=== PATIENT | male | born 1960 | race Caucasian/White ===

== ENCOUNTER 2018-11-28 15:50 | Inpatient (IN) | payer BC, OTHER ==
[~2018-11-28] VITALS: Ht 172.7 cm; Wt 119.7 kg
--- NOTE | 2018-11-28 16:54 | NUR ---
DIRECT ADMIT ARRIVED TO ROOM IN STABLE CONDITION. ADMISSION ASSESSMENT COMPLETED AND CHARTED. PT A&O, X4. VERY FLAT AFFECT, SHORT, AND FRUSTRATED. C/O COUGH AND TROUBLE BREATHING OVER THE PAST MONTH. REPORTING STERNUM PAIN WITH COUGHING. IRREGULAR HEART RATE, HX ABLATION AND OH. CLEAR/COARSE LUNG SOUNDS, IRRITATING COUGH NOTED. NO EDEMA NOTED. ACTIVE BOWEL SOUNDS, LAST BM THIS MORNING. SKIN INTACT. PT BELONGINGS WALLET, CAR KEYS, PHONE, CLOTHES. ADMITING PHYSICIAN NOTIFIED OF PT ARRIVAL. WILL CONTINUE TO MONITOR.
[2018-11-28 17:30] VITALS: BP 140/80
[2018-11-28 17:54] LABS: ABSOLUTE NEUTROPHILS 4.7 thou/uL (1.4-8.2); BASOPHILS 0.8 % (0.0-2.0); EOSINOPHILS 3.5 % (0.0-3.0); HEMATOCRIT 43.7 % (42.0-52.0); HEMOGLOBIN 15.2 gm/dL (14.0-18.0); LYMPHOCYTES 33.2 % (24.0-44.0); MCHC 34.7 g/dL (28.0-37.0); MCV 89.3 fL (80.0-100.0); MONOCYTES 8.1 % (1.0-8.0); PLATELET COUNT 183 thou/uL (150-400); POLYS 54.4 % (36.0-66.0); RBC 4.89 mil/uL (4.50-6.00); RDW 13.9 % (10.5-14.5); WBC 8.7 thou/uL (4.0-11.0)
[2018-11-28 18:05] LABS: ALBUMIN 4.2 g/dL (3.4-5.0); CALCIUM 8.8 mg/dL (8.5-10.1); CREATININE 1.3 mg/dL (0.7-1.3); TOTAL BILIRUBIN 0.4 mg/dL (<0.1-1.0); TOTAL PROTEIN 7.5 g/dL (6.4-8.2)
--- NOTE | 2018-11-28 19:11 | NUR ---
END OF SHIFT. PT SETTLED IN ROOM. PAIN MEDS GIVEN ORDERED FOR IRRITATED COUGH. VISITORS AT BEDSIDE. PT RESTING IN BED.
[2018-11-28 19:40] VITALS: BP 126/85
--- NOTE | 2018-11-28 20:30 | NUR ---
FRIENDS BROUGHT MEDS FROM HOME. MEDS COUNTED WITH PATIENT AND SECURED IN SEALED SECURITY BAG. SENT TO PHARMACY.
--- NOTE | 2018-11-29 04:00 | NUR ---
Assumed care of pt at 1900. Pt alert and oriented x4. Non-productive cough. Breathing treatments administered by RT. Paxil 20mg restarted at hs. Pt iv accidentally came out during shift. WIRED MUSIC OPERATOR on duty notified and it is ok to leave iv out for remainder of shift. Can be restarted in am if needed. Will continue to assist with needs.
[2018-11-29 04:47] VITALS: BP 127/88
[2018-11-29 05:28] LABS: HEMATOCRIT 42.7 % (42.0-52.0); HEMOGLOBIN 14.5 gm/dL (14.0-18.0); MCH 30.6 pg (26.0-34.0); MCHC 34.1 g/dL (28.0-37.0); MCV 89.9 fL (80.0-100.0); RBC 4.75 mil/uL (4.50-6.00); RDW 14.2 % (10.5-14.5); WBC 7.7 thou/uL (4.0-11.0)
[2018-11-29 06:24] LABS: CREATININE 1.1 mg/dL (0.7-1.3); POTASSIUM 4.7 mmol/L (3.5-5.1)
[2018-11-29 07:23] VITALS: BP 140/81
[2018-11-29 16:06] VITALS: BP 141/87
--- NOTE | 2018-11-29 16:12 | NUR ---
INITIAL ASSESSMENT: Pt evaluated for d/c planning needs. Reviewed chart and spoke with nurse and pt. Pt is alert and oriented. Pt lives alone in duplex with his dogs. Pt was independent with ADL's and used no DME. Pt has not had home health in the past. 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 Pt plans on returning home on d/c from hospital. Will remain available to assist as needed.
--- NOTE | 2018-11-29 18:13 | NUR ---
RECEIVED PT FROM AROUND 1730. PT AWAKE, ALERT/ORIENTED X4 ENJOYING DINNER WITH FRIENDS AT BEDSIDE. DRY, NON-PRODUCTIVE COUGH NOTED. PT STATES HE IS NOT COUGHING ANYTHING UP. WILL CONTINUE WITH CURRENT CARE.
[2018-11-29 20:58] VITALS: BP 141/76
--- NOTE | 2018-11-30 03:02 | NUR ---
ASSESSMENT: PT REMAIN ALERT AND ORIENT TIMES FOUR. UP AD DEYSI WITH STEADY GAIT. PT WAS TRANSFERRED DOWN HERE TODAY FROM [facility]. PT STATE THAT HE ONLY SEEN HIS NURSE TWICE. PT IS NEEDY AND REQUIRES LOTS OF TIME EXPLAINING THINGS AND ANSWERING QUESTIONS. PT STATE THAT HE HAS BOUTS OF SWEATING AND AN INCREASE OF FEELING WARM THROUGH OUT HIS BODY. HE SAYS THAT THESE SYMPTOMS WERE CHRONIC. HIS BS WAS 140 AT THE TIME OF HIS COMPLAINTS. PT SAYS THAT HE HAS SPOKEN TO DR. CHENG ABOUT THESE SYMPTOMS BUT HE WILL FURTHER SPEAK WITH DR. WEIR. VSS, AFBRILE. PT WAS VERY DISAPPOINTED THAT HE HAD NOT RECEIVED ANY BREATHING TX'S AND HE STATE THAT HE HAS BEEN ASKING FOR OVER 2 HOURS FOR A TX. HE DID RECEIVE A TX WHILE THIS RN WAS IN THE ROOM AND PT SEEMED TO BE PLEASED. VSS, AFEBRILE. PT HAS A NON-PRODUCTIVE COUGH. PT WITH CONTINUAL PROGRESS TOWARDS DC GOALS, WILL CONTINUE TO MONITOR.
[2018-11-30 08:00] VITALS: BP 141/76
[2018-11-30 13:11] VITALS: BP 123/90
--- NOTE | 2018-11-30 14:33 | NUR ---
AAOX4. NERVOUS. INTERVENTIONS EXPLAINED AT LENGTH. TRANSIENT, VIOLENT, UNPRODUCTIVE COUGH PERSISTS. APPETITE BRISK. BLOOD GLUCOSE AND SLIDING SCALE ORDERED. SHOWERED. FREQUENT CHECKS; WILL CONTINUE TO MONITOR.
[2018-11-30 19:39] VITALS: BP 115/75
--- NOTE | 2018-11-30 19:57 | HC ---
[facility] [place] [address] CONSULTATION Name: ELICEO WADSWORTH Room #: [facility] IN M.R.#: [id number] Admission: 11/28/18 Attend Phys: Julee Rao MD Discharge: Date of : 62 Report #: [id number] THIS REPORT FOR: //name// CC: Julee Murillo PULMONARY CONSULTATION REFERRING PHYSICIAN: Dr. Rao. REASON FOR REFERRAL: Severe paroxysmal cough. HISTORY OF PRESENT ILLNESS: The patient is a 58-year-old white male who was admitted with severe paroxysmal cough. The patient has been relatively healthy until about September, when he developed upper respiratory tract infection with sore throat and cough. He was given zwyt-orz-bzbryvn products. Symptoms did not seem to improve. His cough persisted since September. He was given antibiotics and steroids. Cough symptoms improved temporarily, but to recur. He was then put on a short course of prednisone. He was given a third dose of prednisone intramuscular shots, which seemed to help again temporarily. With persistent and worsening symptoms, he was admitted. He initially presented to the [facility] Emergency Room. He states that the cough was severe enough that at one point in time he had syncopal episode. Otherwise, he denies any past history of chronic respiratory problems such as asthma or chronic bronchitis. He has never smoked, but has been exposed to extensive second-hand smoke. He does snore, but denies any dyspepsia. He smokes marijuana occasionally. He does not smoke cigarettes. PAST MEDICAL HISTORY: Otherwise notable for cardiac ablation for dysrhythmias. ALLERGIES: None noted. MEDICATIONS: Current medication lists are reviewed. FAMILY HISTORY: Noncontributory. SOCIAL HISTORY: He is single. He has not smoked cigarettes, but does smoke marijuana occasionally. Drinks socially. 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 REVIEW OF SYSTEMS: As mentioned above, otherwise 10-point system review [facility] [address] [place] [address] CONSULTATION Name: ELICEO WADSWORTH Room #: [facility] IN [facility].#: [id number] Admission: 11/28/18 Attend Phys: Julee Rao MD Discharge: Date of : 62 Report #: [id number]. PHYSICAL EXAMINATION: GENERAL: On examination, he is awake, alert, in no apparent distress. VITAL SIGNS: Temperature is 98 degrees Fahrenheit, pulse is 90, respiratory rate is 18, blood pressure 140/80 mmHg and saturation 96%. HEENT: Normocephalic, atraumatic. NECK: Supple, without any lymphadenopathy or thyromegaly. CHEST: Breath sounds are good bilaterally, without any rales or wheezes. CARDIOVASCULAR: Normal S1, S2. There are no murmurs or gallops. ABDOMEN: Moderately obese, soft and nontender. No organomegaly or masses are felt. GENITOURINARY: Deferred. RECTAL: Deferred. EXTREMITIES: There is no edema, cyanosis or clubbing. LABORATORY DATA: Chest x-ray is clear. Electrolytes are normal, except for creatinine of 1.3. Liver enzymes are normal. WBC 8700, hemoglobin is normal and platelets are normal. There is no evidence of significant bandemia. Mildly elevated eosinophilia is noted. Albumin is 4.7. IMPRESSION: Persistent severe paroxysmal cough in this 58-year-old white male. Symptoms started around September. It started with upper respiratory tract infection. He seemed to respond temporarily to corticosteroids. He has no known chronic lung disease. The patient does smoke some tobacco products. 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 He may have nocturnal reflux given his history of snoring and moderate obesity. No prior history of asthma. RECOMMENDATIONS: Would suggest moderate-dose intravenous corticosteroids, given failed outpatient therapy. Bronchodilators. Proton pump inhibitors recommended. Antitussives if necessary given history of syncopal episode. Once stable as an outpatient, he will benefit from ongoing inhaled corticosteroids and bronchodilator therapy. We will be happy to see the patient in the office for further evaluation. Thank you for this consultation. <ELECTRONICALLY SIGNED> By: Maxwell Lucia MD 11/30/181956 46 [id number] Maxwell Lucia MD /nt
--- NOTE | 2018-12-01 04:51 | NUR ---
PATIENTS CARES WERE ASSUMED AT SHIFT CHANGE. PATIENT WAS ASSESSED AND MEDS WERE PASSED. PATIENT C/O THE NURSE THAT TYPED DOWN HIS IV. THIS NURSE TOOK DRESSING DOWN AND STARTED A NEW ONE. 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 PATIENT DID SLEEP WITH OUT A SHIRT. NEW ID BRACELLET PLACED THIS SHIFT.HOURLY ROUNDING WAS DONE. BED IS IN A LOW AND LOCKED POSITION
[2018-12-01 07:53] VITALS: BP 134/72
--- NOTE | 2018-12-01 07:58 | NUR ---
ASSUMED PT CARE AT 0700. ASSESSED PT AT 0745. PT AWAKE IN BED. ALERT/ORIENTED X4. REPORTS NON-PRODUCTIVE COUGH AT TIMES BAD ENOUGH TO NEAR BLACKOUT. PAIN IN CHEST FROM COUGHING REPORTED WELL. NO OTHER COMPLAINTS AT THIS TIME. PT ON ROOM AIR. ASSESSMENT IS CHARTED AND IS UNREMARKABLE. VITAL SIGNS STABLE. BLOOD GLUCOSE OBTAINED. WILL CONTINUE WITH CURRENT CARE.
--- NOTE | 2018-12-01 12:29 | NUR ---
PT DOING WELL SO FAR THIS SHIFT. HAS BEEN UP AND AROUND AND TOOK A SHOWER. STILL COUGHING NON-PRODUCTIVE COUGH. NO NEW CONCERNS AT THIS TIME. WILL CONTINUE WITH TYLENOL AND CODEINE FOR PAIN/COUGH MANAGEMENT.
--- NOTE | 2018-12-01 12:44 | NUR ---
SW reviewed chart and spoke with nursing and attending physician. Pt was [facility] to [facility] from and is progressing towards goals for discharge. Pt remains on IV steroids at this time. Plan is for pt to d/c home when medically stable. SUE is following to assist as needed with discharge planning.
--- NOTE | 2018-12-01 16:00 | NUR ---
PT WALKING AVENADNO THIS AFTERNOON. STATES CODEINE IS HELPING COUGH. OTHERWISE NO NEW CONCERNS.
--- NOTE | 2018-12-01 18:24 | NUR ---
PT REPORTED TO [facility]UNCT NURSING FACULTY THAT HE HAD A COUGHING FIT AND THEN PASSED OUT. UPON ASSESSMENT THE PT WAS LYING IN BED AWAKE. STATES HE DID PASS OUT. VITALS WERE OBTAINED AND FOUND TO BE STABLE (SEE CHART). WILL CONTINUE TO MONITOR.
[2018-12-01 18:25] VITALS: BP 109/70
--- NOTE | 2018-12-02 01:02 | NUR ---
Assumed pt care at 1915. Pt A/OX4,c/o pain to the ribcage area with coughing 8/10 and 2/10 at rest,medicated with Tylenol and Codeine per EMAR iwth relief reported.Pt has SOA and a non productive cough which he states is irritating.VSS.Voiding in BR without any problems voiced.Resting quietly eyes closed at this time no distress noted. Pt is up ad porfirio without problems.Will continue to monitor pt.
--- NOTE | 2018-12-02 12:28 | NUR ---
SW reviewed chart and spoke with nursing and attending physician. Awiating pulmonary clearance for pt to d/c home. No SW discharge needs identified, but is available to assist should needs arise.
[2018-12-02] MEDS ORDERED: LORATIDINE 10 M10 M1 PO (13:01)
[2018-12-02] MEDS ORDERED: PREDNISONE 20 M20 MG PO (13:01)
[2018-12-02] MEDS ORDERED: CODEINE SULFATE30 MG PO (13:02)
[2018-12-02] MEDS ORDERED: PAXIL 20 MG TAB20 M1 PO (13:02)
[2018-12-02 14:14] VITALS: BP 109/70
--- NOTE | 2018-12-02 15:04 | NUR ---
ASSUMED CARE OF PATIENT AT 0715, PATIENT ALERT AND ORIENTED X 4. UP AD DEYSI. PAIENT C/O PAIN WITH ABDOMEN AREA, 12/25, TYLENOL 500 MG 1 TABLET GIVEN THIS AM. [address] GUIDRY HERE TO SEE PATIENT OK FOR [facility]ANDERS WITH PULMONARY DOCTOR TO DISCHARGE TO HOME. ALL DISCHARGE PAPERWORK AND ALL PERSONAL BELONGINGS SENT WITH PATIENT. RIGHT FOREARM IV REMOVED PRIOR TO DISCHARGE.
== END 2018-12-02 15:01 | disposition home or self-care (01) | DRG 203 ==
LOC: 3N 15:50 → 4E 15:59 → SICU 17:08 → 4E 17:08 → SICU 11-29 17:18 → ENTRNSPT 12-02 14:33 → EDTRNSPTSTS 12-02 14:38 → SICU 12-02 15:01
PROVIDERS: ADMIT Internal Medicine
DX: J45.909 Unspecified asthma, uncomplicated (principal); F12.90 Cannabis use, unspecified, uncomplicated; B34.9 Viral infection, unspecified; F32.9 Major depressive disorder, single episode, unspecified; F41.9 Anxiety disorder, unspecified; I25.2 Old myocardial infarction; Z79.899 Other long term (current) drug therapy
CPT/HCPCS: 10783; 15002

== ENCOUNTER 2021-08-09 08:03 | Inpatient (IN) | payer BC, OTHER ==
[~2021-08-09] VITALS: Ht 170.2 cm; Wt 119.3 kg
[~2021-08-09 08:03] MED LIST: CODEINE SULFATE30 MG PO; LORATIDINE 10 M10 M1 PO; PAXIL 20 MG TAB20 M1 PO; PREDNISONE 20 M20 MG PO
[2021-08-09 08:16] VITALS: BP 126/89
[2021-08-09] MEDS ORDERED: ALBUTEROL INHALER (08:23)
[2021-08-09 09:31] LABS: ABSOLUTE NEUTROPHILS 6.4 thou/uL (1.4-8.2); BASOPHILS 0.9 % (0.0-2.0); HEMATOCRIT 43.9 % (42.0-52.0); HEMOGLOBIN 15.1 gm/dL (14.0-18.0); MCH 30.7 pg (26.0-34.0); MCHC 34.3 g/dL (28.0-37.0); MCV 89.6 fL (80.0-100.0); MONOCYTES 8.4 % (1.0-8.0); PLATELET COUNT 191 thou/uL (150-400); POLYS 69.7 % (36.0-66.0); RDW 13.5 % (10.5-14.5); WBC 9.2 thou/uL (4.0-11.0)
[2021-08-09 09:40] LABS: CALCIUM 8.6 mg/dL (8.5-10.1); POTASSIUM 4.4 mmol/L (3.5-5.1)
[2021-08-09] MEDS ORDERED: SINGULAIR 10 MG10 M1 PO (17:46)
[2021-08-09 18:21] VITALS: BP 117/73
[2021-08-09 18:30] VITALS: BP 141/60
[2021-08-09 20:34] VITALS: BP 117/63
[2021-08-09] MEDS ORDERED: DIAZEPAM 5 MG5 M1 PO (23:35)
[2021-08-10 01:24] VITALS: BP 119/57
[2021-08-10 03:42] VITALS: BP 134/51
--- NOTE | 2021-08-10 04:53 | NUR ---
PT ADMITTED TO ROOM 211, UP ADLIB IN ROOM, NO C/O PAIN, FAMILY AT BEDSIDE C/O ARRIOLA AND RECEIVED TYLENOL, REMAINS ON RA WITH SAT 97%, VSS, EXPRESSED JAMIL FOR HIS ANXIETY MEDS RECEIVED NEW ORDER AND PT STATES HE WAS ABLE TO RELAX AND SLEEP BETTER, WILL CON'T TO MONITOR PER PPOC.
[2021-08-10 08:10] VITALS: BP 125/93
--- NOTE | 2021-08-10 11:31 | EKG ---
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 : 1960 Requested By: Igor Ramirez Order Number: [id number] MD: Juarez Rosado Measurements Intervals [place] Rate: 85 P: 50 [place]: 179 QRS: -50 QRSD: 156 T: 114 QT: 440 QTc: 524 Interpretive Statements Sinus rhythm Ventricular bigeminy Left bundle branch block Baseline wander in lead(s) V2,V3,V4 No previous ECG available for comparison Electronically Signed On 08-10-2021 11:31:09 CDT by Juarez Rosado [email or web address] <ELECTRONICALLY SIGNED> By: Juarez Rosado MD, [facility] 08/10/21 1131 0 0 Juarez Rosado MD, [facility] /EPI
--- NOTE | 2021-08-10 11:32 | NUR ---
Assumed care of pt this AM. Pt is A&O x4, on RA. Reports some shortness of air but no difficulty breathing. Bigeminy on the monitor. Pt up ad porfirio in room & calls appropraitely. Denies any pain/chest pain. Will continue to monitor throughout day.
[2021-08-10 16:30] VITALS: BP 134/63
[2021-08-10 20:14] VITALS: BP 119/85
--- NOTE | 2021-08-11 01:17 | NUR ---
PT ALERT AND ORIENTED X4. VSS AFEBRILE. SATS WNL ON 2LNC. DENIED PAIN. DIAZEPAM GIVEN FOR ANXIETY. PT REQUESTED CLARITIN TO BE ORDERED BUT STATED HE DID NOT WANT TO BE AWAKENED IF MED WAS AVAILABLE AFTER HE FELL ASLEEP. PT NPO AFTER MN FOR STRESS TEST AND ECHO.
[2021-08-11 03:47] VITALS: BP 138/70
[2021-08-11 08:30] VITALS: BP 121/71
--- NOTE | 2021-08-11 08:40 | NUR ---
PT SLEPT MOST OF NIGHT AFTER DIAZEPAM. NO C/O PAIN OR SOA LAST NIGHT, NPO AFTER MN FOR ECHO AND STRESS TEST.
[2021-08-11 11:40] VITALS: BP 132/76
--- NOTE | 2021-08-11 11:49 | EKG ---
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 : 1960 Requested By: Edgar Marsh Order Number: [id number] MD: Juarez Rosado Measurements Intervals [place] Rate: 86 P: [place]: QRS: -50 QRSD: 161 T: 118 QT: 484 QTc: 579 Interpretive Statements SINUS RHYTHM with frequent VPC's/Couplets Paired ventricular premature complexes Left bundle branch block Compared to ECG 08/09/2021 08:11:31 No signifincant change Electronically Signed On 08-11-2021 11:49:21 CDT by Juarez Rosado [email or web address] <ELECTRONICALLY SIGNED> By: Juarez Rosado MD, [facility] 08/11/21 1149 0909 0909 Juarez Rosado MD, [facility] /EPI
[2021-08-11 15:20] VITALS: BP 113/63
--- NOTE | 2021-08-11 15:24 | 2DMMODE ---
[facility] [place] [address] 2 D/M-MODE ECHOCARDIOGRAM Name: ELICEO WADSWORTH Room #: 211-P ADM IN M.R.#: [id number] Admission: 08/09/21 Attend Phys: Igor Ramirez MD Discharge: Date of : 62 Report #: [id number] THIS REPORT FOR: cc: Ap Murillo - Family physician unknown Edgar Marsh MD [facility] ~ ADDENDUM APPROVED REPORT Study performed: 08/11/2021 13:51:25 EXAM: Comprehensive 2D, Doppler, and color-flow Echocardiogram Patient Location: Bedside Room #: 211 Status: routine BSA: 2.26 HR: 83 bpm BP: 132/76 mmHg Other Information Study Quality: Fair Indications Arrhythmia Dyspnea 2D Dimensions IVSd: 10.71 (7-11mm) LVOT Diam: 26.87 (18-24mm) LVDd: 78.27 mm PWd: 11.07 (7-11mm) Ascending Ao: 40.81 (22-36mm) LVDs: 67.91 (25-40mm) Left Atrium: 42.64 (27-40mm) Aortic Root: 32.25 mm Volumes Left Atrial Volume (Systole) Single Plane 4CH: 56.54 mL Aortic Valve AoV Peak Louis.: 1.63 m/s AO Peak Gr.: 10.58 mmHg LVOT Max P.18 mmHg LVOT Max V: 1.14 m/s RAIN Vmax: 3.96 cm2 Pulmonary Valve [facility] [address] [address] 2 D/M-MODE ECHOCARDIOGRAM Name: ELICEO WADSWORTH Room #: [address] [place] [address] IN M.R.#: [id number] Admission: 08/09/21 Attend Phys: Igor Ramirez MD Discharge: Date of : 62 Report #: [id number] PV Peak Louis.: 1.06 m/s PV Peak Gr.: 4.49 mmHg Left Ventricle Left ventricle is dilated. There is global hypokinesis of the left ventricle. There is normal left ventricular wall thickness. Left ventricular ejection fraction is severely decreased. LVEF 25%. Mild diastolic dysfunction Right Ventricle The right ventricle is normal size. The right ventricular systolic function is normal. Atria Left atrium is at the upper limits of normal. Right atrium is at the upper limits of normal. Aortic Valve The aortic valve is normal in structure. No aortic regurgitation is present. There is no aortic valvular stenosis. Mitral Valve The mitral valve is normal in structure. There is no mitral valve regurgitation noted. No evidence of mitral valve stenosis. Tricuspid Valve The tricuspid valve is normal in structure. There is no tricuspid valve regurgitation noted. Pulmonic Valve The pulmonary valve is normal in structure. There is no pulmonic valvular regurgitation. Great Vessels The aortic root is normal in size. The inferior vena cava is not well visualized. Pericardium There is no pericardial effusion. <Conclusion> Left ventricular ejection fraction is severely decreased. There is global hypokinesis of the left ventricle. LVEF 25%. Mild diastolic dysfunction The aortic valve is normal in structure. No aortic regurgitation or stenosis [facility] [address] [address] [place] [address] 2 D/M-MODE ECHOCARDIOGRAM Name: ELICEO WADSWORTH Room #: 211-P [facility] IN .R.#: [id number] Admission: 08/09/21 Attend Phys: Igor Ramirez MD Discharge: Date of : 62 Report #: [id number] The mitral valve is normal in structure. No mitral valve regurgitation Pulmonary artery pressure could not be reliably ascertained There is no pericardial effusion. <ELECTRONICALLY SIGNED> By: Edgar Marsh MD, [facility] 08/11/21 1523 1523 152 Edgar Marsh MD, FAC /INF
--- NOTE | 2021-08-11 15:32 | NUR ---
ORDERS RECEIVED FOR PT EVAL AND TREAT. Pt LIVES ALONE IN [place] W/ 2 DOGS. CAN AVOID HIS STAIRS TO LOWER LEVEL. NO DEVICE. 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 Pt HAS BEEN UP AD DEYSI. WENT FOR FIRST PART OF STRESS TEST TODAY. STATED THAT HE KNOWS WHEN HE SHOULD AND SHOULDN'T BE MOVING AROUND D/T HIS ARRHTHYMIA ISSUES. STATED HE HAS NEVER FALLEN. Pt VERY AWARE OF HIS OWN LIMITATIONS IT RELATES TO HEART ISSUES. Pt DECLINING NEED FOR PT AT THIS TIME. ACUTE PT TO SIGN OFF.
[2021-08-11 19:33] VITALS: BP 112/62
[2021-08-12] VITALS (12 sets, daily range): BP systolic 89–126; BP diastolic 52–80
--- NOTE | 2021-08-12 00:39 | NUR ---
ASSESSMENT COMPLETED. PT ALERT AND ORIENTED.CONVERSATIONAL BUT REPORTS HE FEELS VERY ANXIOUS ABOUT PROCEDURE TOMORROW BUT FELT BETTER THAT HE GOT TO TALK TO HIS KIDS. DENIES ANY SYNCOPE EPISODES-NO DYSPNEA . HE IS ON ROOM AIR. VENT BIGEMINY ON TELE. NPO AFTER MIDNOC.
[2021-08-12 07:06] LABS: CREATININE 1.1 mg/dL (0.7-1.3); POTASSIUM 4.2 mmol/L (3.5-5.1)
--- NOTE | 2021-08-12 08:53 | CATHLAB ---
[facility] [place] [address] INVASIVE PROCEDURE REPORT Name: ELICEO WADSWORTH Room #: 211-P ADM IN M.R.#: [id number] Admission: 08/09/21 Attend Phys: Igor Ramirez MD Discharge: Date of : 62 Report #: [id number] THIS REPORT FOR: cc: Ap Murillo - Family physician unknown Edgar Marsh MD [facility] ~ APPROVED REPORT Study performed: 08/12/2021 07:54:41 Patient Details Patient Status: In-Patient Room #: 211 The patient is a 61 year-old male Event Personnel Edgar Marsh Data Management, Carlos Monzon RN RN, Nano Blankenship RTR, Zohreh Jewell Ja'net RTR Monitor Procedures Performed Coronary Angiography Only [id number] CORANG Art Access - R femoral artery* 71677 Initial Mod Sed Same Phys/QHP Gr5y 163604 Hemostasis w/ Mynx Procedure Narrative The patient was brought electively to the Cardiac Catheterization Laboratory and was prepped and draped in a sterile manner. The Right Groin^ was infiltrated with 1% Lidocaine subcutaneous anesthesia. A PINNACLE 6FR Sheath #[id number] sheath was inserted into the RFA^. Coronary angiography was performed using coronary diagnostic catheters. The right coronary system was accessed and visualized with a JR4 catheter. The left coronary system was accessed and visualized with a JL4 catheter. Closure device was deployed with a Fr MYNXGRIP 6/7F #[id number]. The patient tolerated the procedure well and there were no complications associated with the procedure. There was no hematoma. Intraoperative Conscious Sedation Sedation start time: 8:08 Case end Time: 8:30 Fentanyl 50 mcg Versed 1 mg Fluoro Time: 1.03 minutes Dose: DAP 4836.20 cGycm2 617 mGy [facility] [employer] [address] INVASIVE PROCEDURE REPORT Name: NACHO WADSWORTHH Room #: 211-P [facility] IN M.R.#: [id number] Admission: 08/09/21 Attend Phys: Igor Ramirez MD Discharge: Date of : 62 Report #: [id number] Contrast Type and Amount: Omnipaque 60 ml Coronary Angiography The patient's coronary anatomy is right dominant. Diagnostic Cath Left Main Normal left main LAD Normal left anterior descending Diagonal 1 Large first diagonal branch, angiographically normal Circumflex Large nondominant circumflex OM1 Mild 20% plaquing at the origin of the large, single marginal branch Right Coronary Normal dominant right coronary R PDA Normal posterior descending RPLV Normal posterior lateral branch Left Ventriculography Left Ventriculography was not performed. Ejection Fraction was 25% based off patient's Echocardiogram. Hemodynamics The aortic pressure is 119/68 mmHg with a mean of 86 mmHg. Conclusion 1. Normal left main 2. Normal left anterior descending 3. Mild 20% plaquing at the origin of the first marginal branch 4. Normal right coronary, dominant <ELECTRONICALLY SIGNED> By: Edgar Marsh MD, [facility] 08/12/21852 2 2 Edgar Marsh MD, [facility] /INF
[2021-08-13] VITALS: BP 97/56
[2021-08-13 04:00] VITALS: BP 116/65
[2021-08-13 04:02] VITALS: BP 116/65
[2021-08-13 05:52] LABS: HEMATOCRIT 44.7 % (42.0-52.0); HEMOGLOBIN 15.4 gm/dL (14.0-18.0); MCH 30.8 pg (26.0-34.0); MCHC 34.5 g/dL (28.0-37.0); MCV 89.2 fL (80.0-100.0); RBC 5.01 mil/uL (4.50-6.00); RDW 13.5 % (10.5-14.5)
[2021-08-13 06:12] LABS: CALCIUM 8.6 mg/dL (8.5-10.1); CREATININE 1.3 mg/dL (0.7-1.3); POTASSIUM 4.5 mmol/L (3.5-5.1)
--- NOTE | 2021-08-13 07:57 | NUR ---
PATIENT SHOWING NO S/S OF BIGEMINY THROUGHOUT NIGHT. NPO AFTER MIDNIGHT FOR PACEMAKER/AICD PLACEMENT. SLEPT WELL. DENIES PAIN, RIGHT GROIN DRESSING C/D/I WITH OUT SWELLING, GROIN REMAINS SOFT. CONTINUE POC.
[2021-08-13 08:00] VITALS: BP 130/60
[2021-08-13 16:00] VITALS: BP 132/71
--- NOTE | 2021-08-13 16:58 | NUR ---
ASSESSMENT CHARTED - MEDS PER JAN - GIVEN TYLENOL FOR CO'S OF GENERAL BODY PAIN WITH GOOD RELIEF. PT UP IN ROOM TOLERATED. AMARI DIET AND FLUIDS WITH NO CO'S OF NAUSEA. PT CHANGED TO CCT STATUS THIS SHIFT - DR CLIFTON STATED OKAY FOR MONITOR TO COME OFF FOR PATIENT TO SHOWER. PT HAD SOTALOL D/C'D THIS AM DUE TO ECTOPY AND WILL HAVE AMMIO STARTED THIS EVENING PER DOCTORS ORDER. 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 REASSURANCE GIVEN. NO CO;S AT THE PRESENT TIME.
[2021-08-13 20:11] VITALS: BP 119/62
[2021-08-14] VITALS: BP 103/58
[2021-08-14 03:48] VITALS: BP 125/69
[2021-08-14 06:22] LABS: CALCIUM 8.8 mg/dL (8.5-10.1); CREATININE 1.1 mg/dL (0.7-1.3); POTASSIUM 4.3 mmol/L (3.5-5.1)
--- NOTE | 2021-08-14 07:43 | NUR ---
ASSESSMENT CHARTED. IV D/C FROM RT A/C DUE TO SEVERE PAIN. RESTARTED IN RIGHT HAND, AMIODARONE CONTINUES TO INFUSE ORDERED. CONTINUE POC.
[2021-08-14 08:00] VITALS: BP 111/64
--- NOTE | 2021-08-14 08:16 | EKG ---
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1960 Requested By: Edgar Marsh Order Number: [id number] MD: Edgar Marsh Measurements Intervals [place] Rate: 79 P: 39 [place]: 186 QRS: -52 QRSD: 158 T: 116 QT: 508 QTc: 583 Interpretive Statements Sinus rhythm Ventricular bigeminy Probable left atrial enlargement Left bundle branch block Compared to ECG 08/11/2021 09:09:39 No significant changes Electronically Signed On 08-14-2021 8:16:16 CDT by Edgar Marsh [email or web address] <ELECTRONICALLY SIGNED> By: Edgar Marsh MD, [facility] 08/14/21 0816 6 6 Edgar Marsh MD, [facility] /EPI
--- NOTE | 2021-08-14 14:56 | NUR ---
NOTIFIED TO PLACE A MIDLINE/PICC/OR CENTRAL FOR A PATIENT THAT IS NOT HAPPY WITH HIS IV ACCESS. PERIPHERAL IV IN RIGHT HAND IS PATENT AND WITH GOOD BLOOD RETURN. UPON DISCUSSING SITUATION WITH THE PATIENT HE DID NOT WANT A LINE IN HIS RIGHT ARM. A MIDLINE WAS CHOSSEN I DID NOT FEEL A PICC OR A CENTRAL LINE WAS NECESSARY FOR THIS PATIENT. I WAS NOT TOLD OR AWARE THIS PATIENT WAS TO HAVE A PACEMAKER PLACEMENT UNTIL THE PATIENT MENTIONED IT AFTER I ACCESSED HIS VEIN AND MIDLINE WAS INSERTED. THE 12CM LINE ADVANCED WITHOUT DIFFICULTY TO THE AXILLARY AREA. LINE WAS SECURED AND RELEASED FOR USE. REKHA LABOY UPDATED THAT THE MIDLINE WAS IN THE LEFT ARM, NOT PICC ACCESS SO IT DOES NOT EXTEND PAST THE SHOULDER.
--- NOTE | 2021-08-14 15:11 | NUR ---
Chart reveiwed and case discussed with the care team. Pt is a&ox4 and up ad porfirio in his room. He was working and indep with gait/adl's prior to admission. He has health insurance in place for f/u care and scripts at [place]. His pcp is [facility] Dr. Murillo. No cm interventions indicated at this time. The pt is having pacermaker placement tomorrow.
[2021-08-14 15:54] VITALS: BP 101/69
--- NOTE | 2021-08-14 19:35 | NUR ---
ASSESSMENT CHARTED - MEDS PER JAN - MIO DRIP INCREASED TO 1MG ORDERED AND LEFT AT THIS RATE. PT WITH CO'S OF PAIN IN R ARM DUE TO IV HE STATES GIVEN HYDROCODONE WITH GOOD RELIEF - MIDLINE PLACED TO LEFT UPPER ARM. PT STATES THAT R ARM REMAINS TENDER -PT VERY ANSIOUS AT TIMES GIVEN VALIUM WITH THIS AM AND PT STATED HE FELT BETTER. ORDER FOR PT TO BE NPO AFTER MN IN ANTICIPATION OF PACER/ICD BEING PLACED IN THE AM. PT UP THE BATHROOM - SHOWERED THIS AM.
[2021-08-14 19:49] VITALS: BP 119/70
[2021-08-15 07:00] VITALS: BP 110/76
--- NOTE | 2021-08-15 07:55 | NUR ---
ASSESSMENT PER CHART. PATIENT VOICES ANXIETY ABOUT AICD PLACEMENT POSSIBLY BEING CANCELLED IN THE AM. PROVIDED SUPPORT AND ANTI ANXIETY MEDS PRN, SLEPT WELL THROUGHOUT THE NIGHT. PICC LINE INFUSING AMIDARONE WITHOUT DIFFICULTY, HEART RHYTHM CONTINUES TO SHOW BIGEMINY. CONTINUE POC.
--- NOTE | 2021-08-15 08:19 | EKG ---
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 : 1960 Requested By: Edgar Marsh Order Number: [id number] MD: Juarez Rosado Measurements Intervals [place] Rate: 70 P: 23 VT: 193 QRS: -51 QRSD: 164 T: 117 QT: 507 QTc: 548 Interpretive Statements Sinus rhythm Paired ventricular premature complexes Left bundle branch block Compared to ECG 08/13/2021 07:17:28 No significant changes Electronically Signed On 08-15-2021 8:19:18 CDT by Juarez Rosado [email or web address] <ELECTRONICALLY SIGNED> By: Juarez Rosado MD, [facility] 08/15/21818 2 2 Juarez Rosado MD, FACC /EPI
--- NOTE | 2021-08-15 09:00 | NUR ---
Assess for length of stay. admit with SOA, CHF, nonischemic cardiomyopathy. NPO for pacemaker today. Prior was on 2g Na diet and eating well. Class III obesity with BMI of 40. Presents low nutrition risk and will follow up to determine if pt has questions about 2g Na diet.
[2021-08-15 11:00] VITALS: BP 107/89
--- NOTE | 2021-08-15 11:46 | NUR ---
TOOK OVER CARE FOR PATIENT AT 0700. PATIENT RESTING IN BED COMFORTABLY. PATIENT DENIES ANY CHEST PAIN, SOA, HEADACHE, OR PALPATIONS. PATIENT EXPRESSED CONCERN FOR UPCOMING PROCEDURE; ADMINISTERED PRN MEDICATION FOR ANXIETY. PATIENT LEFT FOR PACEMAKER PROCEDURE THIS AM. PATIENT DENIES ANY CONCERNS AT THIS TIME. FALL PRECAUTIONS IN PLACE AND CALL LIGHT WITHIN REACH.
--- NOTE | 2021-08-15 15:27 | NUR ---
PATIENT ARRIVED BACK ON UNIT POST-OP AT 1400. THIS NURSE RECEIVED REPORT FROM POST-OP NURSE REGARDING PATIENT AND WAS TOLD THIS PATIENT WAS IN A PACED RHYTHM. PLACED PATIENT ON ACCOUNTANT MANAGER AND RHYTHM SHOWED A BIGEMINY RHYTHM. FOLLOWED UP WITH POST OP NURSE REGARDING RHYTHM, SHE STATED "THEY DID NOT SEE BIGEMINY AND THEY DIDN'T REMEMBER." INFORMED DR. CESAR AND GARRY MOHAMUD OF BIGEMINAL RHYTHM; THEY STATED THEY WERE AWARE OF THE CONTINUED BIGEMINY AFTER PACEMAKER PLACEMENT; STATED HE WOULD BE IN THIS RHYTHM FOR "WEEKS."
[2021-08-15] MEDS ORDERED: AMIODARONE HCL400 MG PO (16:11)
[2021-08-15] MEDS ORDERED: SPIRONOLACTONE50 MG PO (16:11)
[2021-08-15 19:31] VITALS: BP 120/76
[2021-08-16 03:36] VITALS: BP 131/87
--- NOTE | 2021-08-16 04:55 | NUR ---
RECEIVED PATIENT AT 1900H.PATIENT IS ALERT AND ORIENTED X4.ON ROOM AIR BREATHING SPONTANEOUSLY.WITH POST ICD IMPLANTATION SITE C/D/I, WITH LEFT SHOULDER IMMOBILZER ON.MONITOR STILL SHOWS FREQUENT BIGEMINY AND PACED EDD, NIGHT GUARD AWARE.WITH LEFT MIDLINE INTACT, AMIODARONE INFUSING ORDERED.PAIN MANAGEMENT OBSERVED.ALL NEEDS ATTENDED.
[2021-08-16 08:00] VITALS: BP 114/76
[2021-08-16] MEDS ORDERED: CARVEDILOL3.125 MG PO (11:27)
[2021-08-16] MEDS ORDERED: AMIODARONE HCL400 MG PO (11:27)
[2021-08-16 12:00] VITALS: BP 115/80
[2021-08-16 12:30] VITALS: BP 135/49
--- NOTE | 2021-08-16 13:01 | EKG ---
[place] [address] 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
[2021-08-16 15:38] VITALS: BP 106/73
[2021-08-16] MEDS ORDERED: DALMANE15 MG PO (16:54)
[2021-08-16] MEDS ORDERED: ACETAMINOPHEN325 M1 PO (16:54)
[2021-08-16 17:38] VITALS: BP 106/73
--- NOTE | 2021-08-18 11:26 | P ---
[facility] [address] [address] PROCEDURE REPORT Name: ELICEO WADSWORTH Room #: [facility] IN M.R.#: [id number] Admission: 08/09/21 Attend Phys: Igor Ramirez MD Discharge: 08/16/21 Date of : 62 Report #: [id number] THIS REPORT FOR: cc: Ap Murillo - Family physician unknown Alfredo Landon MD ~ DATE OF SERVICE: 08/15/2021 PROCEDURE: BiV ICD PREOPERATIVE DIAGNOSES: 1. Acute LV (left ventricular) systolic heart failure. 2. Nonischemic cardiomyopathy. 3. Recurrent syncope. 4. Multifocal premature ventricular contractions. 5. Monomorphic ventricular tachycardia. 6. Left bundle branch block. 7. [place] [employer] functional class 3 heart failure symptoms. HISTORY: The patient is a 61-year-old who approximately 10 years ago, had 2 failed attempts at PVC ablation in [place]. The patient has done relatively well up until recently when he started experiencing increased shortness of breath, PND, orthopnea and recurrent syncopal episodes. He was admitted to the hospital and found to have a nonischemic cardiomyopathy, EF of 20-25% with a coronary angiogram showing normal coronary arteries. The patient had frequent PVCs, some of the morphologies are suggestive of epicardial origin and also monomorphic ventricular tachycardia. He also has a left bundle branch block. Based on these findings, the patient meets criteria for ICD implantation for secondary prevention of sudden cardiac and also biventricular pacing due to his low ejection fraction and a left bundle branch block. ANESTHESIA: The patient underwent MAC anesthesia. No anesthesia related complications. DESCRIPTION OF PROCEDURE: The patient underwent informed consent. We discussed the details of the procedure including the risks, which include but not limited to bleeding, infection, vascular damage, cardiac perforation, pneumothorax. He understood these risks and is willing to proceed. The patient was brought to the EP laboratory in a fasting and sedated state, prepped and draped in a sterile fashion. He received IV antibiotics, underwent a venogram showing patency of left axillary vein. Next, I injected lidocaine below the level of clavicle. Incision was made, pocket was created over the prepectoral fascia and access was obtained 3 times of left axillary vein using the extrathoracic approach. Sheaths were positioned using the modified Seldinger technique. Leads were positioned in the right ventricular apex and [address] [address] PROCEDURE REPORT Name: ELICEO WADSWORTH Room #: 211-P [facility] IN Sy.R.#: [id number] Admission: 08/09/21 Attend Phys: Igor Ramirez MD Discharge: 08/16/21 Date of : 62 Report #: [id number] right atrial appendage with adequate pacing and sensing thresholds. These leads were sutured to the prepectoral fascia using Ethibond suture. Next, a coronary sinus guide sheath was placed into the right atrium. We quickly got access to the coronary sinus and a venogram was performed showing that he had a nice posterolateral branch. I placed an inner 90-degree sheath and was able to then position, a quadripolar lead into this vessel with adequate pacing thresholds. Thus, the 2 sheaths were split. The lead remained in position and then this lead was sutured to the prepectoral fascia. All the leads were connected to the device. Tug tests were performed. Pocket was irrigated with vancomycin. Pocket closed in 2 layers and surgical glue was placed to outer skin layer. The patient awoke neurologically and hemodynamically intact. No complications. No significant bleeding. The device and leads were from [employer]. The defibrillator was a model number [id number] serial number [id number]. The atrial lead was a 5076, 52 cm, serial number [id number]. The RV lead was a 6935, 62 cm, serial number [id number]. The LV lead was a 4298, 88 cm, serial number [id number]. The atrial lead demonstrated P waves of 2.4 millivolts, pacing impedance of 513 ohms and a pacing threshold of 0.5 volts at 0.4 milliseconds. The RV lead demonstrated R waves of 5.3 millivolts, pacing impedance of 513 ohms and a pacing threshold of 0.5 volts at 0.4 milliseconds. The LV lead demonstrated a pacing impedance of 836 ohms, pacing threshold 1.5 volts at 0.4 milliseconds and this was pacing from LV3 to LV4 . The device was programmed to the DDDR 60-130 mode with the LV lead pacing 30 milliseconds prior to RV lead. The VT zone was set at 180-240 beats per minute with 3 rounds of burst followed by 3 rounds of ramp, followed by max output shocks. The VF zone was set at greater than 240 beats per minute with ATP while charging followed by max output shocks. CONCLUSION: 1. Successful BiV ICD implantation. 2. Satisfactory atrial and ventricular pacing and sensing thresholds. RECOMMENDATIONS: 1. The patient will go back to his room with the device and chest x-ray in the morning. 2. We will continue with IV amiodarone loading to suppress his PVCs and VT and hopefully anticipate discharge in the next 24-48 hours. <ELECTRONICALLY SIGNED> By: Alfredo Landon MD 08/18/21 1126 [id number] 0114 Alfredo Landon MD /cecilia
== END 2021-08-16 18:06 | disposition home or self-care (01) | DRG 224 ==
LOC: ER 08:03 → 2N 12:28 → EROBS 12:28 → 2N 18:13
PROVIDERS: Emergency Medicine; Internal Medicine; Nurse Practitioner; ADMIT Internal Medicine; ATTEND Internal Medicine
PROC: 4A023N7 Measurement of Cardiac Sampling and Pressure, Left Heart, Percutaneous Approach (ICD-10-PCS; 2021-08-12)
PROC: B2111ZZ Fluoroscopy of Multiple Coronary Arteries using Low Osmolar Contrast (ICD-10-PCS; 2021-08-12)
PROC: 05HB33Z Insertion of Infusion Device into Right Basilic Vein, Percutaneous Approach (ICD-10-PCS; 2021-08-14)
PROC: 0JH609Z Insertion of Cardiac Resynchronization Defibrillator Pulse Generator into Chest Subcutaneous Tissue and Fascia, Open Approach (ICD-10-PCS; principal; 2021-08-15)
PROC: 02HK3KZ Insertion of Defibrillator Lead into Right Ventricle, Percutaneous Approach (ICD-10-PCS; principal; 2021-08-15)
PROC: 02H63KZ Insertion of Defibrillator Lead into Right Atrium, Percutaneous Approach (ICD-10-PCS; principal; 2021-08-15)
PROC: 4B02XTZ Measurement of Cardiac Defibrillator, External Approach (ICD-10-PCS; 2021-08-16)
DX: I47.1 Supraventricular tachycardia (principal); I50.21 Acute systolic (congestive) heart failure; J96.01 Acute respiratory failure with hypoxia; I50.23 Acute on chronic systolic (congestive) heart failure; Z68.41 Body mass index [BMI] 40.0-44.9, adult; I25.5 Ischemic cardiomyopathy; I48.91 Unspecified atrial fibrillation; G25.81 Restless legs syndrome; I44.7 Left bundle-branch block, unspecified; F41.9 Anxiety disorder, unspecified; F12.90 Cannabis use, unspecified, uncomplicated; I48.0 Paroxysmal atrial fibrillation; Z20.822 Contact with and (suspected) exposure to COVID-19; E66.01 Morbid (severe) obesity due to excess calories; E78.5 Hyperlipidemia, unspecified; I25.2 Old myocardial infarction; G47.00 Insomnia, unspecified; Z79.899 Other long term (current) drug therapy; Z28.21 Immunization not carried out because of patient refusal